=== PATIENT | male | born 1985 | race African-American/Black ===

== ENCOUNTER → 2019-07-18 | Outpatient (CLI) | payer BC ==
[~2019-07-18] MED LIST: DIATRIZOATE MEGL/DIATRIZOA SOD 30 ML BTL PO ONE; IOPAMIDOL 370 MG/ML 200 ML INFUS..BTL INJ ONE; SODIUM CHLORIDE 0.9% 50ML 50 ML ONE
[2019-07-18 11:26] LABS: BLOOD UREA NITROGEN 11 mg/dL (7-26); BUN/CREATININE RATIO 10 (6-25); CREATININE, SERUM 1.14 mg/dL (0.72-1.25); EST GLOMERULAR FILTRATION RATE > 60 ML/MIN (60-)
--- NOTE | 2019-07-18 13:04 | Diagnostic Imaging Report ---
CT of the abdomen and pelvis, with contrast, 07/18/2019. History: Right-sided abdominal mass. Comparison: None available. Technique: Multidetector CT scanning of the abdomen and pelvis was performed from the level of the lung bases to the inferior pubic rami after intravenous and oral administration of contrast. Coronal and sagittal multiplanar reformations were obtained. RADIATION DOSE: Total DLP: 791 mGy*cm Dose modulation, iterative reconstruction, and/or weight based adjustment of the mA/kV was utilized to reduce the radiation dose to as low as reasonably achievable. Discussion: LUNG BASES: No visualized abnormalities. ABDOMEN: A 6.7 x 6.1 x 9.0 cm circumscribed encapsulated homogeneous low-density fat-containing ( -108 Hounsfield units in density) mass is present laterally in the right external oblique muscle. There is no internal calcification or soft tissue density. The liver, gallbladder, biliary tree, spleen, pancreas, adrenal glands, and kidneys are normal. The hepatic vein, portal vein, and splenic vein are patent. The abdominal aorta is within normal limits for size. The stomach, small bowel, and large bowel are unremarkable. The appendix is visualized and is normal. There is no evidence of adenopathy or free fluid. PELVIS: The bladder, prostate, and seminal vesicles are normal in appearance. There is no evidence of free fluid or adenopathy. BONES AND SOFT TISSUES: Degenerative changes are present throughout the lumbar spine without evidence of lytic or sclerotic lesion. IMPRESSION: Benign right abdominal wall intramuscular lipoma. Otherwise unremarkable CT of the abdomen and pelvis. Signed by: Hank Loredo on 07/18/2019 1:00 PM
== END ==
LOC: CT 10:44
PROVIDERS: ATTEND Surgery
DX: R19.03 Right lower quadrant abdominal swelling, mass and lump (principal)
CPT/HCPCS: 36415; 74177; 82565; 84520; Q9967

== ENCOUNTER → 2019-09-01 | Day surgery (SDC) | payer BC ==
[~2019-09-01] MED LIST changes: +AMLODIPINE BESYL5 MG PO; +BUPIVACAINE 0.25%/EPI 30ML SDV INJ ONE; +DEXAMETHASONE SOD PHOS INJ 4 MG/ML VIAL ONE; -DIATRIZOATE MEGL/DIATRIZOA SOD 30 ML BTL PO ONE; +FENTANYL CITRATE/PF 100MCG/2 ML INJ ONE; -IOPAMIDOL 370 MG/ML 200 ML INFUS..BTL INJ ONE; +KETOROLAC TROMETHAMINE 30 MG/ML VIAL ONE; +LABETALOL HCL200 MG PO; +LIDOCAINE HCL 2% LOCAL INJ 5 ML SDV VIAL INJ ONE; +MIDAZOLAM HCL 2 MG/2 ML VIAL ONE; +ONDANSETRON HCL INJ 2MG/ML 2ML 2 MG/ML VIAL ONE; +PROPOFOL IV EMULSION 10 MG/ML 20 ML VIAL ONE; +SEVOFLURANE INHAL SOLN 250 ML PEN BTL ONE; -SODIUM CHLORIDE 0.9% 50ML 50 ML ONE
--- OUTSIDE RECORDS SUMMARY | 2019-09-01 07:39 | XMS REPORT ---
Author Author [facility] Organization 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 Allergies, Adverse Reactions, Alerts Allergy Name Allergy Type Status Severity Reaction(s) Onset Date Inactive Date Treating Clinician Comments No Known Drug Allergies DA Active U 2019-03-17 00:00:00 No Known Drug Allergies DA Active U 2019-03-16 00:00:00 No Known Allergies DA Active U 2012-09-10 00:00:00 Medications This patient has no known medications. Results Test Description Test Time Test Comments Text Results Atomic Results Result Comments CT ABDOMEN/PELVIS W 2019-07-18 12:46:00 [place] [id number] Patient Name: LIOR NATARAJAN MR #: [id number] : 1985 Age/Sex: 34/M Req #: [id number] Adm Physician: Ordered by: GRABIEL DUNBAR MD Report #: [id number] Location: CT Room/Bed: Procedure: [id number] CT/CT ABDOMEN/PELVIS W Exam Date: 07/18/19 Exam Time: 1144 REPORT STATUS: Signed CT of the abdomen and pelvis, with contrast, 019. History: Right-sided abdominal mass. Comparison: None available. Technique: Multidetector CT scanning of the abdomen and pelvis was performed from the level of the lung bases to the inferior pubic rami after intravenous and oral administration of contrast. Coronal and sagittal multiplanar reformations were obtained. RADIATION DOSE: Total DLP: 791 mGy*cm Dose modulation, iterative reconstruction, and/or weight based adjustment of the mA/kV was utilized to reduce the radiation dose to as low as reasonably achievable. Discussion: LUNG BASES: No visualized abnormalities. ABDOMEN: A 6.7 x 6.1 x 9.0 cm circumscribed encapsulated homogeneous low-density fat-containing ( -108 Hounsfield units in density) mass is present laterally in the right external oblique muscle. There is no internal calcification or soft tissue density. The liver, gallbladder, biliary tree, spleen, pancreas, adrenal glands, and kidneys are normal. The hepatic vein, portal vein, and splenic vein are patent. The abdominal aorta is within normal limits for size. The stomach, small bowel, and large bowel are unremarkable. The appendix is visualized and is normal. There is no evidence of adenopathy or free fluid. PELVIS: The bladder, prostate, and seminal vesicles are normal in appearance. There is no evidence of free fluid or adenopathy. BONES AND SOFT TISSUES: Degenerative changes are present throughout the lumbar spine without evidence of lytic or sclerotic lesion. IMPRESSION: Benign right abdominal wall intramuscular lipoma. Otherwise unremarkable CT of the abdomen and pelvis. Signed by: Hank Loredo on 07/18/2019 1:00 PM Dictated By: HANK LOREDO MD 1300 Transcribed By: FERNANDA on 07/18/19 1300 COPY TO: GRABIEL DUNBAR MD
[2019-09-01 08:17] LABS: BASOPHILS % 0.6 % (0.0-1.0); EOSINOPHILS # (AUTO) 0.1 (0.0-0.4); EOSINOPHILS % 1.8 % (0.0-6.0); HEMATOCRIT 44.3 % (38.2-49.6); HEMOGLOBIN 15.4 g/dL (14.0-18.0); LYMPHOCYTES # (AUTO) 2.6 (1.0-3.2); LYMPHOCYTES % 40.2 % (18.0-39.1); MEAN CORPUSCULAR HEMOGLOBIN 29.3 pg (28-32); MEAN CORPUSCULAR HGB CONC 34.8 g/dL (31-35); MEAN CORPUSCULAR VOLUME 84.2 fL (81-99); MONOCYTES # (AUTO) 0.6 (0.2-0.8); MONOCYTES % 9.6 % (4.4-11.3); NEUTROPHILS # (AUTO) 3.1 (2.1-6.9); NEUTROPHILS % 47.6 % (38.7-80.0); PLATELET COUNT 226 x10e3/uL (140-360); RED BLOOD COUNT 5.26 x10e6/uL (4.3-5.7); RED CELL DISTRIBUTION WIDTH 12.3 % (11.7-14.4)
[2019-09-01 09:45] VITALS: BP 133/83
--- NOTE | 2019-09-01 15:19 | Operative Report ---
DATE OF PROCEDURE: 09/01/2019 SURGEON: Mitchel Lang MD PREOPERATIVE DIAGNOSIS: Intramuscular mass of the right lower abdominal wall. POSTOPERATIVE DIAGNOSIS: Intramuscular mass of the right lower abdominal wall. OPERATION PERFORMED: Resection of intramuscular mass of the right lower abdominal wall. ANESTHESIA: General. COMPLICATIONS: None. ESTIMATED BLOOD LOSS: Minimal. DESCRIPTION OF PROCEDURE: With the patient lying in bed in the supine position under good general anesthesia, the abdomen was prepped with Betadine solution and draped in the usual manner. An incision was made in the right lower quadrant over the palpable mass was carried down through the subcutaneous tissue and through the external oblique aponeurosis, and immediately a large lipoma to this intramuscular mass was encountered, which was within the fibers of the external oblique aponeurosis. The mass was then from all of the musculature and slowly and carefully removed in its entirety and sent for pathological examination. Hemostasis was ascertained. All layers were then infiltrated on the way out with 0.25% Marcaine. The external oblique aponeurosis was then closed with a running suture of 2-0 Vicryl. The subcutaneous tissue was approximated with 3-0 Vicryl and the skin was closed with clips. A dressing was applied. The sponge, lap, and needle count was correct. The patient tolerated the procedure well and returned to the recovery room in stable condition. MD DU RiveraR/MODL /[id number]
== END | disposition home or self-care (01) ==
LOC: OR 07:36
PROVIDERS: ATTEND Surgery
DX: D17.9 Benign lipomatous neoplasm, unspecified (principal); I10 Essential (primary) hypertension
CPT/HCPCS: 22901; 36415; 85025; 88304; J1100; J1885; J2001; J2250; J2405; J2704; J3010